=== PATIENT | female | born 1995 | race Two or more races ===

== ENCOUNTER 2016-09-27 00:02 | Inpatient (IN) | payer SELFPAY ==
[2016-09-27] VITALS (61 sets, daily range): BP systolic 100–138; BP diastolic 51–112; PULSE 64–145; RESP 17–20; TEMP 97.7–98.7
[~2016-09-27 00:02] MED LIST: LEVO125T4 PO; PREN1TAB63
[2016-09-27] MEDS ORDERED: LACTATED RINGER'S 1000 ML INJ 1,000 ML IV PRN (01:01)
--- NOTE | 2016-09-27 01:09 | HHI.HP ---
HPI Chief Complaint Water broke Date Seen: Sep 27, 2016 Travel History International Travel<30 Days: No Contact w/Intl Traveler<30Days: No Known Affected Area: No History of Present Illness HPI 21-year-old female at 39 weeks [facility] presents with the rupture the membranes, amnio sure is positive, no bleeding noted heart rate tracing is reactive and she is olive every 4-5 minutes, records available, patient being [employer] does not want a male attendant her physician and nurse checked her cervix Para: 0 : 1 History Past Medical History Narrative Medical Hypothyroid and takes thyroxine Social History Narrative Social History Patient is from [facility] is [place] Alcohol Use: No Tobacco Use: No Substance Abuse: No Allergies-Medications (Allergen,Severity, Reaction): Coded Allergies: No Known Allergies (Unverified , 09/18/16) Home Meds Reported Medications Levothyroxine 125 Mcg App769 Mcg PO DAILY #30 TAB Ref 0 08/25/16 Multivit-Min W/Fe-FA ( Vitamins 0.8 mg)1 Tab Tab 08/25/16 Review of Systems General / Constitutional: No: Fever, Weight Gain, Chills, Other Eyes: No: Diploplia, Blurred Vision, Visual changes, Pain, Photophobia HENT: No: Headaches, Vertigo, Lightheadedness Cardiovascular: No: Irregular Rhythm, Chest Pain or Discomfort, Palpitations, Tachycardia, Syncope, Varicosities, Edema, Cyanosis Respiratory: No: Cough, Short of Breath, Other Gastrointestinal: No: Nausea, Vomiting, Diarrhea Genitourinary: No: Decreased Urinary Output, Oliguria Musculoskeletal: No: Limited ROM, Weakness, Cramping, Edema, Pain Skin: No Rash, No Itching, No Dryness, No Lumps, No Change in Pigmentation, No Change in Nails, No Alopecia, No Lesions Neurologic: No: Weakness, Dizziness, Syncope, Focal Abnormalities, Coordination Problem, Headache, Slurred Speech, Seizures Psychiatric: No: Depression, Suicidal Ideations, Homicidal Ideation Endocrine: No: Heat Intolerance, Cold Intolerance, Polydipsia, Polyuria, Other Physical Exam Narrative GENERAL: Well-nourished, well-developed patient. SKIN: Warm and dry. HEAD: Normocephalic and atraumatic. EYES: No scleral icterus. No injection or drainage. ENT: No nasal drainage noted. Mucous membranes pink. Airway patent. NECK: Supple, trachea midline. No JVD. CARDIOVASCULAR: Regular rate and rhythm without murmurs, gallops, or rubs. RESPIRATORY: Breath sounds equal bilaterally. No accessory muscle use. BREASTS: Bilateral exam showed no masses , no retractions, no nipple discharge. ABDOMEN/GI: Abdomen soft, non-tender, bowel sounds present, no rebound, no guarding Gravid to [39-] weeks size Fundal Height: [39-] GENITOURINARY: External Genitalia: intact and normal in appearance BUS glands: [-] Cervix: [-] Dilatation: [-Probably fingertip to a centimeter her cervix was unreachable by the nurse so posterior and she is not hurting so that she is really not dilated much] Effacement: [-] Station: [-] Presentation: [Vertex-] Membranes ruptured] Uterine Contractions: [Regular-] FHT's: Category: [-1] Baseline: [-133] Reactive: [-yes] Variability: [mod-] Decels: [none-] EXTREMITIES: No cyanosis or edema. BACK: Nontender without obvious deformity. No CVA tenderness. NEUROLOGICAL: Awake and alert. Motor and sensory grossly within normal limits. Five out of 5 muscle strength in all muscle groups. Normal speech. Data Data Orders Admit To Inpatient (09/27/16 ) Vital Signs (Adult) .Per protocol (09/27/16 01:01) Heart (09/27/16 01:01) Amnioinfusion (09/27/16 01:01) Urinary Catheter Management .ONCE (09/27/16 01:01) Lactated Ringer's 1000 Ml Inj (Lr 1000 M (09/27/16 01:01) Lactated Ringer's 1000 Ml Inj (Lr 1000 M (09/27/16 01:01) Sodium Chlorid 0.9% 500 Ml Inj (Ns 500 M (09/27/16 01:15) Sodium Chlor 0.9% 1000 Ml Inj (Ns 1000 M (09/27/16 01:21) Lidocaine 1% Inj (50 Ml) (Xylocaine 1% I (09/27/16 01:15) Citric Acid-Sodium Citrate Liq (Bicitra (09/27/16 01:15) Fentanyl Inj (Fentanyl Inj) (09/27/16 01:15) Fentanyl Inj (Fentanyl Inj) (09/27/16 01:15) Complete Blood Count With Diff (09/27/16 01:01) Labs Positive amnio sure Assessment/Plan Assessment and Plan Patient is 21-year-old female at 39 weeks with spontaneous ruptured membranes and early labor. She has a positive amnio sure, no vaginal bleeding. heart rate tracing is reactive and she is olive regularly. Patient's cervix was very posterior essentially unreachable by the nurse checked her. She will not let a male physician or attendant examine her Plans admission to the hospital for labor management monitoring and augmentation as needed. Tomorrow's OB hospitalist Dr. Monk a female and should work well for her. Until then another 2 female family practice residents on 2 night that could assist in her evaluation if needed Dariel Diallo II, MD Sep 27, 2016 01:09
[2016-09-27] MEDS ORDERED: LIDOCAINE HCL 1% 50 ML VIAL INFIL PRN (01:15)
[2016-09-27] MEDS ORDERED: MINERAL OIL 10 ML VIAL TOPICAL PRN (01:15)
[2016-09-27] MEDS ORDERED: OXYTOCIN 30 UNITS-500ML PREMIX 500 ML IV ONE (01:15)
[2016-09-27] MEDS ORDERED: LIDOCAINE HCL 1% 50 ML VIAL I-DERMAL PRN (01:15)
[2016-09-27] MEDS ORDERED: SODIUM CHLORID 0.9% 500 ML INJ 500 ML IV PRN (01:15)
[2016-09-27] MEDS ORDERED: CITRIC ACID-SODIUM CITRATE LIQ 30 ML UDC PO SCH (01:15)
[2016-09-27] MEDS ORDERED: SODIUM CHLOR 0.9% 1000 ML INJ 1,000 ML IV PRN (01:21)
[2016-09-27] MEDS: LACTATED RINGER'S 1000 ML INJ 1,000 ML IV SCH ×3 (02:13→12:01)
[2016-09-27 02:47] LABS: AUTOMATED NEUTROPHIL # 6.1 TH/MM3 (1.8-7.7); BASOPHIL % 0.3 % (0.0-2.0); EOSINOPHIL # 0.1 TH/MM3 (0-0.4); EOSINOPHIL % 1.3 % (0.0-4.0); HEMATOCRIT 32.2 % (35.0-46.0); HEMO FLAGS DIFF FINAL; LYMPH % 23.2 % (9.0-44.0); LYMPHOCYTE # 2.1 TH/MM3 (1.0-4.8); MEAN CELL VOLUME 86.2 FL (80.0-100.0); MEAN CORPUSCULAR HEMOGLOBIN 30.5 PG (27.0-34.0); MEAN CORPUSCULAR HGB CONC 35.3 % (32.0-36.0); MONO % 7.3 % (0.0-8.0); NEUT % 67.9 % (16.0-70.0); PLATELET COUNT 187 TH/MM3 (150-450); RED BLOOD COUNT 3.74 MIL/MM3 (4.00-5.30); RED CELL DISTRIBUTION WIDTH 13.2 % (11.6-17.2)
[2016-09-27 03:06] LABS: BLOOD, URINE SMALL (NEG); CALCIUM OXALATE CRYSTALS,URINE OCC /hpf; COMMENT (UR) CULT NOT INDICATED; CULTURE IF INDICATED CULT NOT INDICATED; GLUCOSE,URINE NEG (NEG); KETONE, URINE NEG (NEG); MUCUS URINE FEW /lpf (OCC); NITRITE,URINE NEG (NEG); SQUAMOUS EPITHELIAL CELL URINE 4 /hpf (0-5); URINE COLOR YELLOW (YELLW/STRAW)
[2016-09-27] MEDS ORDERED: fentaNYL 2MCG-BUPIV 0.125% INJ 100 ML ONE (06:10)
[2016-09-27] MEDS ORDERED: ePHEDrine/NS 25 MG/5 ML SYR ONE (06:11)
[2016-09-27] MEDS ORDERED: NO SYSTEM NARCOTICS PRN (07:30)
[2016-09-27] MEDS ORDERED: OXYTOCIN 30 UNITS/NS 500ML PREMIX IV SCH (07:30)
[2016-09-27] MEDS ORDERED: DO NOT ADMINISTER ANTICOAGULANTS PRN (07:30)
[2016-09-27] MEDS ORDERED: fentaNYL 2MCG-BUPIV 0.125% 100 ML EPIDURAL SCH (07:30)
[2016-09-27] MEDS ORDERED: ePHEDrine/NS 25 MG/5 ML SYR IV PRN (07:30)
--- NOTE | 2016-09-27 11:41 | PD.LABORPN ---
Subjective Subjective Patient is comfortable with LARRY Objective Vital Signs Vital Signs Date Time Temp Pulse Resp B/P Pulse Ox O2 Delivery O2 Flow Rate FiO2 09/27/16 11:09 18 09/27/16 11:00 101 118/70 09/27/16 09:14 97.9 Objective Trial pushing with patient. Anterior Lip noted on SVE FHT's: Baseline 145 Mod variability Accelerations to 160 Occasional variable CAT I TOCO: q2-4 min Assessment/Plan Assessment and Plan 39 week G1 Presented with ROM GBS negative Patient has epidural Anterior Lip present Start pushing in stage II labor Bibi Porter MD Sep 27, 2016 11:41
[2016-09-27] MEDS ORDERED: DIPHTH/TETANUS/ACEL PERTUSSIS (BOOSTER) 0.5 ML VIAL/PFS IM ONE (16:00)
[2016-09-27] MEDS ORDERED: MEASLES, MUMPS, RUBELLA VACCINE 0.5 ML VIAL SQ ONE (16:00)
[2016-09-27 16:14] LABS: BLOOD GAS BASE EXCESS -2.1 mmol/L (-2-2); BLOOD GAS O2 HGB SATURATION 36 % (90-100); CORD BLOOD GAS HCO3 24 mmol/L (21-29); CORD BLOOD GAS PCO2 51 mmHG (34-78); CORD BLOOD GAS PH 7.29 (7.14-7.42); CORD BLOOD GAS PO2 20 mmHG (3.0-40.0); DRAW SITE CORD BLOOD; STAT NO
--- NOTE | 2016-09-27 16:19 | PD.OB.DELI ---
Delivery Date: Sep 27, 2016 Anesthesia: Epidural Episiotomy: None Vaginal Delivery: Normal Presentation: Occiput anterior Nuchal Cord: x1 Delayed cord clamping (45 sec): No : Male One Minute : 8 Five Minute : 9 Weight: 3455g Placenta: Spontaneous delivery, Intact, 3 vessel cord Laceration: Vaginal laceration, 2 deg Repair: Chromic running Additional Information 21 y/o at 39/1 presented with PROM, clear fluid, augmented with pitocin, epidural was administered. Baby was occiput posterior and naturally rotated ROT, manually rotated to OA, normal spontaneous vaginal delivery of baby, spontaneous delivery of placenta - grossly normal 2nd degree vaginal laceration, repaired chromic running. Performed by Dr. Herman, supervised by Dr. Porter. (Jen Herman MD R1) Additional Information EBL 100ml (Bibi Porter MD) Jen Herman MD R1 Sep 27, 2016 16:18 Bibi Porter MD Sep 27, 2016 18:54
[2016-09-27] MEDS ORDERED: ONDANSETRON ODT 4 MG TAB PO PRN (16:30)
[2016-09-27] MEDS ORDERED: ZOLPIDEM TARTRATE 5 MG TAB PO PRN (16:30)
[2016-09-27] MEDS ORDERED: oxyCODONE/ACETAMINOPHEN 5 MG/325 MG TAB PO PRN ×2 (16:30)
[2016-09-27] MEDS ORDERED: ALUMINUM/MAGNESIUM/SIMETH 30 ML CUP PO PRN (16:30)
[2016-09-27] MEDS ORDERED: DOCUSATE SODIUM 50 MG/SENNA 8.6 MG TAB PO PRN (16:30)
[2016-09-27] MEDS ORDERED: SODIUM CHLORIDE 0.9% FLUSH 10 ML FLUSH IV FLUSH PRN (16:30)
[2016-09-27] MEDS ORDERED: ACETAMINOPHEN 325 MG TAB PO PRN (16:30)
[2016-09-27] MEDS: LEVOTHYROXINE SODIUM 150 MCG TAB PO ONE ×2 (20:00→21:15)
[2016-09-27] MEDS ORDERED: SODIUM CHLORIDE 0.9% FLUSH 10 ML FLUSH IV FLUSH SCH (21:00)
[2016-09-27] MEDS: IBUPROFEN 600 MG TAB PO PRN (21:15)
[2016-09-28] MEDS: WITCH HAZEL 50%/GLYCERIN 12.5% 40 PAD JAR TOPICAL PRN (02:32)
[2016-09-28] MEDS: BENZOCAINE 20% TOPICAL SPRAY 60 ML CAN TOPICAL PRN (02:32)
[2016-09-28 08:10] VITALS: BP 119/67; PULSE 78; RESP 16; TEMP 98.2
--- NOTE | 2016-09-28 08:46 | HHI.OB ---
Subjective Post Day: 1 Remarks Lochia small. +Cramping with mostly. Ambulating and voiding ok. Labia swollen, but not painful. Objective Vitals/I&O Vital Signs Date Time Temp Pulse Resp B/P Pulse Ox O2 Delivery O2 Flow Rate FiO2 09/27/16 21:22 89 133/75 09/27/16 21:22 98.7 18 Objective Remarks GENERAL: Well-nourished, well-developed patient. NAD CARDIOVASCULAR: Regular rate RESPIRATORY: No accessory muscle use. ABDOMEN/GI: Abdomen soft, non-tender. Fundus: Firm, non-tender at U-2 GENITOURINARY: Light to moderate bleeding. EXTREMITIES: No cyanosis or edema, non-tender, without signs of DVT. Medications and IVs Assessment/Plan Assessment and Plan PPD #1 s/p Doing well PP Continue to assist with Reviewed Motrin for cramping Continue PP care and observation Anticipate d/c in AM Bibi Porter MD Sep 28, 2016 08:46
[2016-09-28] MEDS: LEVOTHYROXINE SODIUM 125 MCG TAB PO SCH (09:00)
[2016-09-28] MEDS: IBUPROFEN 600 MG TAB PO PRN ×2 (09:18→15:40)
[2016-09-28 20:36] VITALS: BP 96/58; PULSE 93; RESP 14; TEMP 97.9
[2016-09-29] MEDS: IBUPROFEN 600 MG TAB PO PRN ×2 (03:18→16:46)
[2016-09-29 08:05] VITALS: BP 113/70; PULSE 57; RESP 16; TEMP 98.3
[2016-09-29] MEDS ORDERED: IBUP-232 PO (08:50)
--- NOTE | 2016-09-29 08:53 | HHI.DCPOC ---
Discharge Care Plan Report Symptoms to Your Doctor -Temperature above 100.5 degrees -Redness, of incision or excessive or foul smelling drainage -Unusual pain or calf pain -Increased vaginal bleeding -Painful or difficulty urinating -Feelings of extreme sadness or anxiety after 2 weeks Goals to Promote Your Health * To prevent worsening of your condition and complications * To maintain your health at the optimal level Directions to Meet Your Goals Take your medications as prescribed Follow your dietary instruction Follow activity as directed Ensure plenty of rest for recovery Drink fluids for hydration Keep your appointments as scheduled Take your immunizations and boosters as scheduled If your symptoms worsen call your PCP, if no PCP go to Urgent Care Center or Emergency Room Smoking is Dangerous to Your Health. Avoid second hand smoke Call the 24-hour crisis hotline for domestic abuse at Danilo Sullivan MD R1 Sep 29, 2016 08:51
--- NOTE | 2016-09-29 09:00 | HHI.OB ---
Subjective Post Day: 2 Remarks 21 YO delivered via at 39/1 weeks and is progressing well at PPD2. Ambulating, epidural back pain controlled with Motrin, tolerating PO, voiding and BMx2, and light bleeding. AFVSS. Denies CP, SOB, N/V/D, and DVT pain. Objective Vitals/I&O Vital Signs Date Time Temp Pulse Resp B/P Pulse Ox O2 Delivery O2 Flow Rate FiO2 09/29/16 08:05 98.3 57 16 113/70 09/28/16 20:36 97.9 93 14 96/58 Objective Remarks GENERAL: Well-nourished, well-developed patient. NAD CARDIOVASCULAR: RRR with no murmur, rub or gallop RESPIRATORY: No accessory muscle use or increased WOB. All lungs curtis clear to auscultation ABDOMEN/GI: Abdomen soft, non-tender, BS+ no guarding or rebound. Fundus: Firm, mildly tender to palpation below umbilicus GENITOURINARY: Light to moderate bleeding. EXTREMITIES: No cyanosis or edema, non-tender, without signs of DVT. Medications and IVs Current Medications Medications (Trade) Dose Ordered Sig/Naresh Route Start Time Stop Time Status Last Admin (Pitocin 30 Units-NS 500 ml Premix) 500 ml @ 0 mls/hr TITRATE IV 09/27/16 07:30 (NS Flush) 2 ml BID IV FLUSH 09/27/16 21:00 (NS Flush) 2 ml UNSCH PRN IV FLUSH 09/27/16 16:30 (Tylenol) 650 mg Q4H PRN PO 09/27/16 16:30 09/28/16 02:39 (Motrin) 600 mg Q6H PRN PO 09/27/16 16:30 09/29/16 03:18 (Percocet 5-325 Mg) 1 tab Q4H PRN PO 09/27/16 16:30 (Percocet 5-325 Mg) 2 tab Q4H PRN PO 09/27/16 16:30 (Americaine 20% Top Spr) 1 spray Q4H PRN TOPICAL 09/27/16 16:30 09/28/16 02:32 (Tucks Pads) 1 applic QID PRN TOPICAL 09/27/16 16:30 7/17/17 02:32 (Jessica-Colace) 2 tab Q12H PRN PO 09/27/16 16:30 (Ambien) 5 mg HS PRN PO 09/27/16 16:30 (Mag-Al Plus Susp Liq) 15 ml Q8H PRN PO 09/27/16 16:30 (Zofran Odt) 4 mg Q6H PRN PO 09/27/16 16:30 (Synthroid) 125 mcg ONCE ONCE PO 10/01/16 20:00 10/01/16 20:01 (Synthroid) 125 mcg DAILY PO 09/28/16 09:00 Assessment/Plan Assessment and Plan 21 YO PPD #2 s/p - Doing well PP - Exclusively - Motrin prn for pain control - Nothing in the vagina for 6 weeks - Ready for d/c today Danilo Sullivan MD R1 Sep 29, 2016 09:00
[2016-09-29] MEDS: LEVOTHYROXINE SODIUM 125 MCG TAB PO SCH (09:08)
[2016-09-29] MEDS: WITCH HAZEL 50%/GLYCERIN 12.5% 40 PAD JAR TOPICAL PRN (16:46)
[2016-09-29] MEDS: BENZOCAINE 20% TOPICAL SPRAY 60 ML CAN TOPICAL PRN (16:46)
[2016-10-01] MEDS ORDERED: LEVOTHYROXINE SODIUM 125 MCG TAB PO ONE (20:00)
== END 2016-09-29 17:30 | disposition home or self-care (01) | DRG 775 ==
LOC: HOBED 00:02 → H2EA 01:04 → H1EA 20:06
PROVIDERS: ADMIT Obstetrics & Gynecology Maternal & Fetal Medicine; ATTEND Obstetrics & Gynecology Maternal & Fetal Medicine
PROC: 10E0XZZ Delivery of Products of Conception, External Approach (ICD-10-PCS; principal; 2016-09-27)
PROC: 0KQM0ZZ Repair Perineum Muscle, Open Approach (ICD-10-PCS; 2016-09-27)
DX: O42.92 Full-term premature rupture of membranes, unspecified as to length of time between rupture and onset of labor (principal); E03.9 Hypothyroidism, unspecified; O99.284 Endocrine, nutritional and metabolic diseases complicating childbirth; O69.81X0 Labor and delivery complicated by cord around neck, without compression, not applicable or unspecified; O70.1 Second degree perineal laceration during delivery; Z37.0 Single live birth; Z3A.39 39 weeks gestation of pregnancy
CPT/HCPCS: 81001; 82805; 84112; 85025; 86850; 86900; 86901; 90715; J2590; J7120